=== PATIENT | male | born 2000 | race Caucasian/White ===

== ENCOUNTER 2019-07-19 18:01 | Emergency (ER) | payer OTHER, SELFPAY ==
[2019-07-19 18:22] VITALS: BMI 48.7
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
[2019-07-19 18:27] VITALS: BP 170/75; PULSE 62; RESP 16; TEMP 37; O2SAT 98
[2019-07-19 18:46] VITALS: BP 130/67; PULSE 68; RESP 14; O2SAT 98
--- NOTE | 2019-07-21 10:05 | DCPLANNER ---
manager urgent care had message to schedule a follow up appointment for patient with Dr. Elias. manager urgent care called the office of Dr. Elias, ENT, spoke with Kath, a follow up appointment was scheduled for , July 23, 2019 at 2:[address] Elias. manager urgent care called patient to inform patient of the scheduled appointment, unable to speak with patient at this time, a voicemail was left for patient to return director of casework phone call. manager urgent care will fax patients records to Dr. Patterson office.
--- NOTE | 2019-08-21 09:11 | DCPLANNER ---
Patient did attend appointment with Dr. Elias, but did not want any treatment at this time. Patient will return to see physician on an as needed basis.
== END 2019-07-19 18:46 | disposition home or self-care (01) ==
LOC: ER 19:29
PROVIDERS: Emergency Provider Emergency Medicine; PCP Family Medicine
DX: S09.92XA Unspecified injury of nose, initial encounter (principal); W22.8XXA Striking against or struck by other objects, initial encounter
CPT/HCPCS: 12345; 99281

== ENCOUNTER 2020-08-03 20:56 | Observation (INO) | payer OTHER, SELFPAY ==
[2020-08-03 21:36] VITALS: BP 159/74; PULSE 66; RESP 16; TEMP 36.7; O2SAT 98; BMI 55.5
--- NOTE | 2020-08-03 22:17 | ED_ITS ---
HPI - Abdominal Pain General: Chief Complaint: Abdominal Pain Stated Complaint: pain in Lower stomach, N/V Time Seen by Provider: 08/03/20 22:14 Source: patient Mode of arrival: ambulatory Limitations: no limitations History of Present Illness: HPI narrative: 20-year-old male states been having right lower quadrant abdominal pain over the last day. He states been episodic and was actually worse early and currently is a 3 out of 10. States pain is sharp denies any worsening improving factors. Has had no abdominal surgeries in the past. Denies any vomiting or diarrhea. Denies any fevers. Denies any known sick contacts. MD elicited complaint: abdominal pain Associated Symptoms: Denies chills, dysuria and fever(s) Review of Systems Const: Denies: fever(s), chills, body aches or change in appetite Eyes: Denies: blurry vision or eye discomfort ENMT: Denies: throat pain or dental pain Card: Denies: chest pain Resp: Denies: dyspnea GI: Reports: abdominal pain : Denies: dysuria Musc: Denies: neck pain or back pain Skin/Breast: Denies: rash Neuro: Denies: headache(s) Psych: Denies: depression Tyler/Lymph: Denies: easy bruising All/Imm: Denies: urticaria PFSH ED PFSH: Social History Smoking and tobacco status: never smoked Physical Exam Const: COMMON NORMALS: no acute distress, patient oriented x3 and healthy appearing HENMT: COMMON NORMALS: normocephalic and atraumatic HEAD & SCALP: normocephalic and atraumatic Eye: COMMON NORMALS: Equal, round and reactive pupils present and EOMs intact bilaterally PUPIL: Yes Equal, round and reactive pupils present Neck/C-Spine: COMMON NORMALS: full ROM and supple Chest: COMMONS NORMALS: normal inspection of the chest and normal palpation of entire chest wall Resp: COMMON NORMALS: normal respiratory effort, No retractions, No use of accessory muscles and clear to auscultation bilaterally AUSCULTATION: clear to auscultation bilaterally Cardio: COMMON NORMALS: regular rate, regular rhythm and No murmurs present (Cardio) RATE: regular rate RHYTHM: regular rhythm GI: COMMON NORMALS: Normal to inspection, nondistended, normoactive bowel sounds present, Soft to palpation and no masses PALPATION: Yes Soft to palpation and Yes Tenderness to palpation present (GI) Details: RLQ Extremity: COMMON NORMALS: normal to inspection and full ROM Neuro: COMMON NORMALS: patient oriented x3, moves all extremities and no focal motor deficits Psych: COMMON NORMALS: mental status grossly normal, Normal thought process present and cooperative THOUGHT PROCESS: Normal thought process present Skin: COMMON NORMALS: no rashes or lesions noted and no wounds GENERAL SKIN EXAM: no rashes or lesions noted Course Vital Signs: Vital signs: Vital Signs Temperature 98.0 F 08/03/20 21:36 Pulse Rate 86 08/03/20 22:53 Respiratory Rate 18 08/03/20 22:53 Blood Pressure 155/73 08/03/20 22:53 Pulse Oximetry 96 08/03/20 22:53 MDM - Abdominal Pain MDM Narrative: Medical decision making narrative: Patient presents with abdominal pain with CT showing appendicitis. Patient started on IV antibiotics and I spoke to surgeon who will admit. Patient's pain is improved here. Lab Data: Labs: Lab Results 08/03/20 08/03/20 Range/Units 22:46 22:46 WBC 10.0 (4.0-10.0) 10^3/ uL RBC 4.81 (4.1-5.3) 10^6/u L Hgb 13.9 (11.7-16.6) g/dL Hct 42.3 (42.0-52.0) % MCV 87.9 (80-94) fL MCH 28.9 (28.0-34.0) pg MCHC 32.9 (30.0-36.0) g/dL RDW 12.8 (12.1-15.1) % Plt Count 253 (130-400) 10^3/c mm MPV 9.4 (7.4-10.4) fL Neut % (Auto) 71.6 % Lymph % (Auto) 21.3 % [place] % (Auto) 5.7 % Eos % (Auto) 0.7 % Baso % (Auto) 0.4 % Neut # (Auto) 7.14 (1.8-7.7) 10^3/u L Lymph # (Auto) 2.1 (0.8-4.8) 10^3/u L [place] # (Auto) 0.6 (0.2-0.9) 10^3/u L Eos # (Auto) 0.1 (0.0-0.8) 10^3/u L Baso # (Auto) 0.0 (0.0-0.1) 10^3/u L Nucleated RBC % (a uto) 0 % Nucleated RBCs # 0.0 /100WBC Sodium 135 L (136-145) mmol/L Potassium 3.9 (3.5-5.1) mmol/L Chloride 101 (98-107) mmol/L Carbon Dioxide 23 (22-29) mmol/L Anion Gap 14.9 (5-19) BUN 12 (6-20) mg/dL Creatinine 0.7 (0.7-1.2) mg/dL GFR Calculation 142.4 H (90-130) mL/min Glucose 98 (65-115) mg/dL Calculated Osmolal ity 280 L (285-295) mOsm/k g Calcium 8.5 (8.5-10.5) mg/dL Total Bilirubin 0.3 (0.15-1.2) mg/dL AST 25 (0-40) U/L ALT 34 (0-41) U/L Alkaline Phosphata se 78 (40-130) IU/L Total Protein 6.5 L (6.6-8.7) g/dL Albumin 4.2 (3.5-5.2) g/dL Globulin 2.3 (1.3-4.6) g/dL Lipase 13 (13-60) U/L Imaging Data ^: CT Abd/Pel: Attestation: I personally reviewed and interpreted this imaging study as follows: Radiologist's impression: [address] [address] [address] Scan Report Signed with Addenda Patient: Kin Rubio Unit #: [id number] : 2000 Age/Sex: 20 / M ADM Date: 08/03/20 Loc: ER Room/Bed: Attending Dr: Ordering Provider/Ordering MD: Lorene Robles MD Date of Service: 08/03/20 Procedure(s): CT abdomen pelvis w con* [id number] Accession Number(s): [id number] Report Number: [id number]/CT abdomen pelvis w con* [id number] THIS REPORT CONTAINS FINDINGS THAT MAY BE CRITICAL TO PATIENT CARE. The findings were verbally communicated via telephone conference with LORENE ROBLES at 11:13 PM CDT on 08/03/2020. The findings were acknowledged and understood. Radiation Dose CTDIVOL = (mGy): DLP = 1973.44 (mGy-cm) Addendum Dictated By: Juan Jose Bearden MD Addendum Signed By: Juan Jose Bearden MD Signed Date/Time: 2313 Addendum Cosigned By: PROCEDURE INFORMATION: Exam: CT Abdomen And Pelvis With Contrast Exam date and time: 08/03/2020 10:17 PM Age: 20 years old Clinical indication: Abdominal pain; Localized; Lower; Additional info: Abd pain TECHNIQUE: Imaging protocol: Computed tomography of the abdomen and pelvis with contrast. Radiation optimization: All CT scans at this facility use at least one of these dose optimization techniques: automated exposure control; mA and/or kV adjustment per patient size (includes targeted exams where dose is matched to clinical indication); or iterative reconstruction. Contrast material: OMNI 300; Contrast volume: 95 ml; Contrast route: INTRAVENOUS (IV); COMPARISON: CR XR KUB [id number] 10/08/2015 4:31 AM RADIATION DOSE METRICS: Total DLP (mGy-cm): 1973.44 FINDINGS: Liver: Normal. No mass. Gallbladder and bile ducts: Normal. No calcified stones. No ductal dilation. Pancreas: Normal. No ductal dilation. Spleen: Normal. No splenomegaly. Adrenal glands: Normal. No mass. Kidneys and ureters: Left kidney cyst, negative for follow-up advised. Stomach and bowel: Unremarkable. No obstruction. No mucosal thickening. Appendix: Appendix dilated to 9.1 mm with some surrounding edema concerning for an acute appendicitis in the appropriate clinical setting. Intraperitoneal space: Unremarkable. No free air. No significant fluid collection. Vasculature: Unremarkable. No abdominal aortic aneurysm. Lymph nodes: Unremarkable. No enlarged lymph nodes. Urinary bladder: Unremarkable as visualized. Reproductive: Unremarkable as visualized. Bones/joints: Unremarkable. No acute fracture. Soft tissues: Unremarkable. CT/CT abdomen pelvis w con* [id number] IMPRESSION: 1. Appendix dilated to 9.1 mm with some surrounding edema concerning for an acute appendicitis in the appropriate clinical setting. 2. Left kidney cyst, negative for follow-up advised. COMMENTS: Consistent with the [employer]'s Incidental Findings Committee white paper (J Am Leonard Radiol 2018): Any incidental renal lesion less than 1 cm or classified as too small to characterize, or any incidental cystic renal lesion characterized as simple-appearing, is likely benign. No follow-up imaging is recommended for these lesions per consensus recommendations based on imaging criteria. Radiation Dose CTDIVOL = (mGy): DLP = 1973.44 (mGy-cm) Discharge Plan Discharge Prescriptions: No Action No Known Home Medications RF: 0 Coding Level of Care Code ED Curing Press Operator for g Fwd Exam Comprehensive
[2020-08-03] MEDS: iohexol 300 mg/mL 100 mL Btl IV (22:30)
[2020-08-03 22:43] VITALS: RESP 18; O2SAT 97
[2020-08-03] MEDS: morphine 4 mg/mL SDV 1 mL IVP (22:43)
[2020-08-03] MEDS: ondansetron 2 mg/ML SDV 2 mL 4 MG IVP (22:43)
[2020-08-03 22:53] VITALS: BP 155/73; PULSE 86; RESP 18; O2SAT 96
[2020-08-03 22:53] LABS: Basophils % 0.4 %; Eosinophils # 0.1 10^3/uL (0.0-0.8); Eosinophils % 0.7 %; Hematocrit 42.3 % (42.0-52.0); Hemoglobin 13.9 g/dL (11.7-16.6); Lymphocytes # 2.1 10^3/uL (0.8-4.8); Lymphocytes % 21.3 %; Mean Corpuscular HGB Conc 32.9 g/dL (30.0-36.0); Mean Corpuscular Hemoglobin 28.9 pg (28.0-34.0); Mean Corpuscular Volume 87.9 fL (80-94); Mean Platelet Volume 9.4 fL (7.4-10.4); Monocytes # 0.6 10^3/uL (0.2-0.9); Monocytes % 5.7 %; Neutrophils # 7.14 10^3/uL (1.8-7.7); Neutrophils % 71.6 %; Nucleated Red Blood Cells % 0 %; Platelet Count 253 10^3/cmm (130-400); Red Blood Count 4.81 10^6/uL (4.1-5.3); Red Cell Distribution Width 12.8 % (12.1-15.1)
[2020-08-03 23:11] LABS: Alanine Aminotransferase 34 U/L (0-41); Albumin Level 4.2 g/dL (3.5-5.2); Alkaline Phosphatase 78 IU/L (40-130); Aspartate Amino Transferase 25 U/L (0-40); Blood Urea Nitrogen 12 mg/dL (6-20); Calcium 8.5 mg/dL (8.5-10.5); Carbon Dioxide 23 mmol/L (22-29); Chloride 101 mmol/L (98-107); Globulin 2.3 g/dL (1.3-4.6); Glomerular Filtration Rate 142.4 mL/min (90-130); Glucose 98 mg/dL (65-115); Lipase 13 U/L (13-60); Osmolality Calculated 280 mOsm/kg (285-295); Sodium 135 mmol/L (136-145); Total Bilirubin 0.3 mg/dL (0.15-1.2); Total Protein 6.5 g/dL (6.6-8.7)
[2020-08-03 23:14] LABS: Anion Gap 14.9 (5-19); Potassium 3.9 mmol/L (3.5-5.1)
[2020-08-03 23:30] VITALS: BP 153/71; PULSE 62; RESP 18; O2SAT 98
[2020-08-03] MEDS: piperacillin-tazobactam 3.375 GM in sodium chloride 0.9% (plus) 50 ML IV (23:32)
[2020-08-04] VITALS (20 sets, daily range): BP systolic 123–166; BP diastolic 69–85; PULSE 54–106; RESP 16–30; TEMP 36.4–37.1; O2SAT 90–100
[2020-08-04] MEDS: sodium chloride 0.9% 1,000 ML 100 ML IV (01:34)
--- NOTE | 2020-08-04 07:30 | PC.NURSE ---
Patient is gone to surgery before this nurse was able to see him. Report received at this time from Anali Donohue LPN.
--- NOTE | 2020-08-04 07:32 | ANES.PREANE2 ---
Pre-Anesthetic Assessment Pre-Anesthetic Assessment: Height/Weight: Height 1.83 m Weight 185.973 kg Temp Pulse Resp BP Pulse Ox 97.5 F L 54 L 18 166/75 98 08/04/20 03:15 08/04/20 07:28 08/04/20 07:28 08/04/20 07:28 08/04/20 07:28 Preop Diagnosis: acute appendicitis Proposed Procedure: Operation Date: 08/04/20 08:15 Proposed Procedures p Laparoscopic Appendectomy(Not Applicable) - Damien Foley MD Was Beta Yen taken within 24 hours: N/A Was Clonidine taken within 24 hours: N/A Last intake: Intake Last Liquid Date 08/03/20 Last Liquid Time 21:00 Last Solid Date 08/03/20 Last Solid Time 18:00 Social: Social History: No alcohol and No tobacco Exam: Pre-Anes Outpt Exam: alert, oriented x 3, clear to auscultation bilaterally and regular rate & rhythm Airway: Submandibular: WNL Cervical ROM: WNL MP: 2 Dentition: Full History/ROS: No significant history except as noted Metabolic: Metabolic: Morbid obesity Anesthetic Plan: ASA status: 2 Anesthesia: General Risk of > 500 ml blood loss (7ml/kg in children): No Meds/Allergies Current Medications: Current Medications Generic Name Dose Route Start Last Admin Trade Name Freq PRN Reason Stop Dose Admin Sodium Chloride 1,000 mls @ 100 m ls/hr 08/04/20 00:55 08/04/20 01:34 Sodium Chloride 0.9% IV 100 mls/hr .Q10H SENA Administration PFSH Anesthesia PFSH: Social History Smoking and tobacco status: never smoked Data Anesthesia CBC & Chem 7: 08/03/20 22:46 08/03/20 22:46 Other Labs: Laboratory Results - last 48 hr 08/03/20 08/03/20 22:46 22:46 WBC 10.0 RBC 4.81 Hgb 13.9 Hct 42.3 MCV 87.9 MCH 28.9 MCHC 32.9 RDW 12.8 Plt Count 253 MPV 9.4 Neut % (Auto) 71.6 Lymph % (Auto) 21.3 [place] % (Auto) 5.7 Eos % (Auto) 0.7 Baso % (Auto) 0.4 Neut # (Auto) 7.14 Lymph # (Auto) 2.1 [place] # (Auto) 0.6 Eos # (Auto) 0.1 Baso # (Auto) 0.0 Nucleated RBC % (auto) 0 Nucleated RBCs # 0.0 Sodium 135 L Potassium 3.9 Chloride 101 Carbon Dioxide 23 Anion Gap 14.9 BUN 12 Creatinine 0.7 GFR Calculation 142.4 H Glucose 98 Calculated Osmolality 280 L Calcium 8.5 Total Bilirubin 0.3 AST 25 ALT 34 Alkaline Phosphatase 78 Total Protein 6.5 L Albumin 4.2 Globulin 2.3 Lipase 13 Cardiac Studies: No Data to Display
--- NOTE | 2020-08-04 07:40 | P.HP_ITS ---
Providers/Chief Complaint Admitting Physician: Damien Foley MD Primary Care Provider: Raul Chapman DO Chief Complaint: pain in Lower stomach, N/V History of Present Illness Kin Rubio is a 20 year old male who presented to the ER last night with 2-day history of generalized abdominal pain. Patient that he was constipated but he had been having bowel movements. Yesterday evening the pain progressively got worse and localized to the lower abdomen. Patient had nausea but no vomiting. Fevers but denies any chills. No urinary symptoms. No similar episodes in the past. Review of Systems General: Reports: 10 or more systems reviewed and unremarkable except in HPI and below Medications/Allergies Home Medications Medication Instructions Recorded Confirmed Last Taken Type No Known Home Medications 07/19/19 07/19/19 Unknown History Allergies Allergy/AdvReac Type Severity Reaction Status Date / Time No Known Allergies Allergy Verified 07/19/19 18:26 PFSH Acute PFSH: Surgical History (Updated 08/04/20 @ 07:39 by Damien Foley MD) S/P foot surgery, left Social History Smoking and tobacco status: never smoked Vitals/I&O/Wt Last Vital Signs Temp 97.5 F L 08/04/20 03:15 Pulse 54 L 08/04/20 07:28 Resp 18 08/04/20 07:28 BP 166/75 08/04/20 07:28 Pulse Ox 98 08/04/20 07:28 08/03/20 08/04/20 08/04/20 22:59 06:59 14:59 Intake Total 50 / 50 Balance 50 / 50 Weight last 48 hrs Weight 410 lb Physical Exam Narrative: EXAM NARRATIVE: HEENT: Normocephalic Eye: Sclera /conjunctiva normal Respiratory and chest: Bilateral clear breath sounds on auscultation Cardiovascular: Normal S1 and S2 heart sounds Abdomen: Soft to palpation, tender right lower quadrant, no guarding or rigidity Neurological: Oriented to place person and time Skin: Intact, no lesions appreciated on gross exam Data : 08/03/20 22:46 08/03/20 22:46 A&P Assessment and plan (1) Acute appendicitis: 20-year-old male with right lower quadrant pain,, nausea, tender to palpation the right lower quadrant. WBC [address] scan showed findings consistent with early acute appendicitis Patient is admitted overnight for IV antibiotics Plan for laparoscopic possible open appendectomy today Procedure, risks, benefits and alternatives have been discussed with the patient who wishes to proceed with surgery. Status: Acute Attestations Medical Necessity Statement*: Acute appendicitis Coding Level of Care Code Acute Cashier Self Service [employer] for [facility] Sia Diagnoses Acute appendicitis K35.80
[2020-08-04] MEDS: HYDROmorphone 1 mg/mL INJ 1 mL 0.5 MG IVP ×2 (09:38→09:48)
--- NOTE | 2020-08-04 09:58 | PM.OP ---
Operative Report Date of procedure: August 04, 2020 Pre-op Diagnosis: acute appendicitis Post-op diagnosis: same Procedure Done: Laparoscopic appendectomy Specimens removed/disposition: Appendix Surgeon: Damien Foley Anesthesia: General Condition: stable Disposition: PACU Procedure: The patient was taken to the Operating Room and intubated under general anesthesia after antibiotic had been administered. Using a 15 blade, a 1-cm infraumbilical incision was made and using open Olivia technique, the peritoneal cavity was entered. A 12mm port with balloon was placed and 14 mm of pneumoperitoneum was created and 10-mm 30 degree scope was introduced. Two separate 5mm ports were placed in the left and right lower quadrant under direct visualization. The appendix was noted in the right lower quadrant and appeared acutely inflamed.. Using [place] forceps, an opening was made in the mesoappendix near the base of the appendix. An Endo KAROLINA stapler 45mm long 3.5mm blue load was introduced to divide the appendix at it's base. Using electrocautery, the mesoappendix including the appendicular artery was divided. There was no bleeding noted and the staple line appeared intact. An EndoCatch bag was introduced to remove the appendix. All three ports were removed under direct visualization and there was no bleeding noted on the port sites. 10 0.5% Marc[place] was infiltrated at the port sites. The fascia at the umbilical port was closed using figure of eight 0-Vicryl sutures and subcutaneous tissue was approximated using 3-0 Vicryl and skin at all 3 port sites was closed using 4-0 Monocryl and Dermabond. The patient was extubated and transferred to recovery room in stable condition.
--- NOTE | 2020-08-04 10:46 | PC.CHAP ---
Pastoral Care Encounter/Spiritual Assessment Type of Contact [] Declined health safety instructor visit [] Patient/Family/Request visit [] Outpatient visit [] Follow-up visit [] Physician referral [] Code/Alert [] Routine visit [] Staff referral [] Actively dying [] Patient sleeping [x] Family support [] [] Out of room [] Palliative care [] [] Receiving care in room [] Pre-surgical visit [] Trauma [] Long length of stay [] ICU visit [] Other: had surgery Relational/Emotional Strength [x] Patient feels connected with others/family/visitors/staff [] Distress [] Loneliness/isolation [] Abandonment Spirituality of Patient [] Person of Lupe [] Attends Yazidi of their Lupe [] Believes in Prayer [] Reads Bible or Jehovah'S Witness materials [] There are Spiritual issues to be addressed Line Producer Interventions [] Prayer [] Active listening [] Non-anxious presence [] Spiritual/emotional support [] Crisis/trauma care [] Spiritual counseling [] Bereavement support [] Provided bereavement packet [] Provided Bible/devotional materials [] Provided toy/stuffed animal, coloring book to patient or family member [] Provided Communion [] Anointing/[place] [] Salvation [] Completed spiritual assessment [] Other: Impact on Illness or Injury [] Angry [] Fearful [] Anxious [] Often cries [] Exhaustion [] Unable to work [] Unable to attend pentecostalism [] Unable to walk/stand [] Unable to read [] Unable to drive [] Unable to eat/drink [] Unable to sleep [] Unable to be with family [] Patient intubated [] Other: Summary had surgery, going home apendex, doing fine +1 feoncee Time spent with patient 10 mins
[2020-08-04] MEDS: HYDROcodone-acetaminophen 5-325 mg Tablet 1 TAB PO ×2 (11:20→15:20)
--- NOTE | 2020-08-04 12:54 | PC.NURSE ---
Patient ate 90% of his clear liquid tray and ambulated 175 feet at this time. Patient denies any nausea or dizziness. Patient rates pain a 5/10 and no change with ambulation.
--- NOTE | 2020-08-04 13:57 | PC.NURSE ---
Patient ambulating in the hallway with hids significant other.
--- NOTE | 2020-08-04 14:40 | PM.DCS ---
Discharge Providers Date of Admission: 08/04/20 00:12 Date of Discharge: August 04, 2020 Attending Provider at Admission: Damien Foley MD Attending Provider at Discharge: Damien Foley MD Primary Care Provider: Raul Chapman DO Diagnoses at Discharge Discharge Diagnosis (1) Acute appendicitis: Status: Resolved Reason for Visit Reason for Visit: pain in Lower stomach, N/V Hospital Course Hospital Course Kin Rubio is a 20 year old male who presented to the ER last night with 2-day history of generalized abdominal pain. Patient that he was constipated but he had been having bowel movements. Yesterday evening the pain progressively got worse and localized to the lower abdomen. Patient had nausea but no vomiting. Fevers but denies any chills. No urinary symptoms. No similar episodes in the past. He was admitted to the hospital and underwent laparoscopic appendectomy. At time of discharge his vital signs were stable he was tolerating a liquid diet and his incisions were clean dry and intact. His pain is controlled with oral pain medication. Discharge Data Data Completed and Pending: Completed Studies During Hospitalization Category Date Time Status CT abdomen pelvis w con* [id number] Urge nt Cat Scan 08/03/20 22:16 Completed Pending at discharge Category Date Time Status ES surgery / GI i mages Routine Exams 08/04/20 08:31 Taken Pathology: Surgic al [PTH] Routine Pth 08/04/20 09:18 Received Labs from last 24 hours 08/03/20 08/03/20 22:46 22:46 WBC 10.0 RBC 4.81 Hgb 13.9 Hct 42.3 MCV 87.9 MCH 28.9 MCHC 32.9 RDW 12.8 Plt Count 253 MPV 9.4 Neut % (Auto) 71.6 Lymph % (Auto) 21.3 Mcdowell % (Auto) 5.7 Eos % (Auto) 0.7 Baso % (Auto) 0.4 Neut # (Auto) 7.14 Lymph # (Auto) 2.1 Mcdowell # (Auto) 0.6 Eos # (Auto) 0.1 Baso # (Auto) 0.0 Nucleated RBC % (a uto) 0 Nucleated RBCs # 0.0 Sodium 135 L Potassium 3.9 Chloride 101 Carbon Dioxide 23 Anion Gap 14.9 BUN 12 Creatinine 0.7 GFR Calculation 142.4 H Glucose 98 Calculated Osmolal ity 280 L Calcium 8.5 Total Bilirubin 0.3 AST 25 ALT 34 Alkaline Phosphata se 78 Total Protein 6.5 L Albumin 4.2 Globulin 2.3 Lipase 13 Vitals: Last Vital Signs Temp 97.9 F 08/04/20 10:38 Pulse 64 08/04/20 10:38 Resp 18 08/04/20 10:38 BP 157/73 08/04/20 10:38 Pulse Ox 95 08/04/20 10:38 Discharge Plan Discharge Patient Disposition: Home Condition: Stable Prescriptions: New Zofran 4 mg tablet 4 mg PO Q6H PRN (Reason: nausea and vomiting) Qty: 20 RF: 0 Colace 100 mg capsule 100 mg PO BID Qty: 30 RF: 0 hydrocodone-acetaminophen 5-325 mg tablet 1 tab PO Q6H PRN (Reason: pain) Qty: 20 RF: 0 Discharge Orders: Discharge Order (Routine); Ordered 08/04/20 Ordered By: Damien Foley Referrals: Damien Foley MD [Physician] - 08/19/20 9:35 am Patient Instructions: Hydrocodone/Acetaminophen (By mouth), Laxative, Stool Softeners (By mouth), Ondansetron (By mouth), Laparoscopic Appendectomy (DC), Opioid Safety Activity Restrictions/Additional Instructions: Diet Advance to normal diet as tolerated, increase fluid intake as much as possible. Activity Avoid strenuous activity for 2 weeks but continue with daily activities including walking as tolerated. Do not lift more than 10 pounds for 2 weeks Return to work/school You can return to work/ school whenever you feel ready as long as you don?t have to lift more than 10 pounds at work. If you have paperwork that needs to be completed for time off from work, please contact my office Driving You can resume driving once you stop using narcotic pain medications, and transition to non-opioid pain medications like Tylenol, Motrin, Aleve, etc. Medications Pain Take opioid pain medications as prescribed and transition to non-opioid pain medications like Tylenol, Motrin, Aleve etc. over the next few days. The goal of the pain medications is to make the pain bearable and not to be pain free since you recently had surgery. Resume all home medications after surgery as per the medication reconciliation list Nausea Nausea is common after surgery, take nausea medications as needed and stay on a liquid bland diet until nausea resolves. Constipation The combination of surgery, anesthesia and pain medications can result in constipation. Take stool softeners as prescribed. If you do not have a bowel movement in 3 days, please take an [id number] laxative like MiraLAX to address the constipation. Shower It is ok to shower but avoid getting the wound wet for 48 hours after surgery. Do not soak in bathtub, swimming pool or hot tub for 2 weeks. Wound care If glue has been used on your incisions after surgery, the glue on the incision will peel slowly over the next two weeks. The stitches used are dissolvable and will not need to be removed. Do not apply antibiotics or other medications on the incision Problems with the wound: you can develop some redness around the incision from bruising after surgery. If there is increasing pain, redness, tenderness around the incision with or without drainage, please contact my office to rule out an infection. Sometimes the skin at the incisions can separate, resulting in reopening of the wound. Cover the wound with antibiotic cream and sterile dressings and contact my office. Contact physician Call the office at [phone] during office hours or go the Emergency Room ?Fever to 100.4 or greater ?Shaking chills ?Pain that increases over time ?Redness, warmth, or pus draining from incision sites ?Persistent nausea or inability to take in liquids Discharge Attestations Time Spent in Discharge Care*: less than 30 min Quality Metrics Clinical Quality Measures During this hospital stay, did patient experience: None Coding Level of Care Code Acute [facility] note Diagnoses Acute appendicitis K35.80
--- NOTE | 2020-08-04 15:01 | ANE.PACU2 ---
Inpatient post-anesthesia follow up: Airway intact: Yes Vital signs: Temperature 98.5 F Pulse Rate [Monito r] 66 Pulse Rate 79 Respiratory Rate 18 Blood Pressure [Le ft Arm] 159/74 Blood Pressure 123/69 Pulse Oximetry 96 Oxygen Delivery Me thod Room Air Oxygen Flow Rate 8 Fraction of Inspir ed Oxygen Hydration adequate: Yes Nausea and vomiting: No Pain level: 2 Mental status: Baseline
--- NOTE | 2020-08-04 15:17 | PC.NURSE ---
Patient up ambulating in the hallway at this time.
--- NOTE | 2020-08-04 16:27 | PC.NURSE ---
IV removed intact at this time. Reviewed discharge with patient at this time. Patient verbalized understanding of discharge instructions. Patient verbalized understanding of follow up appointments as well. Patient ambulated to the ER to his private car.
== END 2020-08-04 16:30 | disposition home or self-care (01) ==
LOC: ER 23:59 → MEDSURG 08-04 00:13
PROVIDERS: Admitting Provider Surgery; Emergency Provider Emergency Medicine; PCP Family Medicine; Visit Provider Surgery
PROC: 0DTJ4ZZ Resection of Appendix, Percutaneous Endoscopic Approach (ICD-10-PCS; CPT 44970; principal; 2020-08-04 08:15)
DX: K35.80 Unspecified acute appendicitis (principal); E66.01 Morbid (severe) obesity due to excess calories
CPT/HCPCS: 44970; 74177; 80053; 83690; 85025; 88304; 96365; 96367; 96375; 99285; G0378; J1100; J1170; J2270; J2405; J2543; J2704; J2710; J3010; J3490; J7030; Q9967

== ENCOUNTER 2021-09-06 18:14 | Emergency (ER) | payer OTHER, SELFPAY ==
[2021-09-06 18:24] VITALS: BP 149/91; PULSE 99; RESP 18; TEMP 37.7; O2SAT 98; BMI 54.2
[2021-09-06] MEDS: ondansetron 2 mg/ML SDV 2 mL 4 MG IVP (20:09)
[2021-09-06] MEDS: acetaminophen 325 mg Tablet 650 MG PO (20:09)
[2021-09-06] MEDS: sodium chloride 0.9% 1,000 ML 999 ML IV (20:09)
--- NOTE | 2021-09-06 20:09 | W.ED.NAVMDI ---
HPI - Nausea/Vomiting/Diarrhea General: Chief complaint: Nausea/Vomiting/Diarrhea Stated complaint: back pain/diarrhea/indegestion Time Seen by Provider: 09/06/21 19:48 Source: patient Mode of arrival: ambulatory Limitations: no limitations History of Present Illness: 21-year-old male states that over the last 2 days he been having some generalized body aches along with some low-grade fevers he is also had some nausea and abdominal cramping states pain is currently a 3 out of 10 denies any worsening proving factors patient denies any headaches denies any chest pain or cough. Associated nausea: Yes Associated symtoms: Reports nausea; Denies chest pain, dysuria or headache(s) Review of Systems Const: Reports: fever(s); Denies: chills, body aches or change in appetite Eyes: Denies: blurry vision or eye discomfort ENMT: Denies: throat pain or dental pain Card: Denies: chest pain Resp: Denies: dyspnea GI: Reports: abdominal pain, nausea and vomiting; Denies: diarrhea : Denies: dysuria Musc: Denies: neck pain or back pain Skin/Breast: Denies: rash Neuro: Denies: headache(s) Psych: Denies: depression Tyler/Lymph: Denies: easy bruising All/Imm: Denies: urticaria PFSH ED PFSH: Surgical History S/P foot surgery, left S/P laparoscopic appendectomy (08/04/20) Social History Smoking and tobacco status: never smoked Physical Exam Const: COMMON NORMALS: no acute distress, patient oriented x3 and healthy appearing HENMT: COMMON NORMALS: normocephalic and atraumatic HEAD & SCALP: normocephalic and atraumatic Eye: COMMON NORMALS: Equal, round and reactive pupils present and EOMs intact bilaterally PUPIL: Yes Equal, round and reactive pupils present Neck/C-Spine: COMMON NORMALS: full ROM and supple Chest: COMMONS NORMALS: normal inspection of the chest and normal palpation of entire chest wall Resp: COMMON NORMALS: normal respiratory effort, No retractions, No use of accessory muscles and clear to auscultation bilaterally AUSCULTATION: clear to auscultation bilaterally Cardio: COMMON NORMALS: regular rate, regular rhythm and No murmurs present (Cardio) RATE: regular rate RHYTHM: regular rhythm GI: COMMON NORMALS: Normal to inspection, nondistended, normoactive bowel sounds present, Soft to palpation, non-tender and no masses PALPATION: Yes Soft to palpation Extremity: COMMON NORMALS: normal to inspection and full ROM Neuro: COMMON NORMALS: patient oriented x3, moves all extremities and no focal motor deficits Psych: COMMON NORMALS: mental status grossly normal, Normal thought process present and cooperative THOUGHT PROCESS: Normal thought process present Skin: COMMON NORMALS: no rashes or lesions noted and no wounds GENERAL SKIN EXAM: no rashes or lesions noted Course Vital Signs: Vital signs: Vital Signs Temperature 99.9 F H 09/06/21 18:24 Pulse Rate 99 09/06/21 18:24 Respiratory Rate 18 09/06/21 18:24 Blood Pressure 149/91 09/06/21 18:24 Pulse Oximetry 98 09/06/21 18:24 MDM - Nausea/Vomiting/Diarrhea Medical Decision Making Patient presents with some abdominal pain nausea fevers his exam here is benign white count is normal he has no signs of acute surgical abdomen not believe he requires a CT of his abdomen and likely has a viral syndrome his COVID was negative as well. He is stable for discharge we will prescribe him Zofran he is to take Motrin Tylenol for his fever is follow-up with PCP and return if worsening he understands agrees to plan. Lab Data : 09/06/21 20:01 09/06/21 20:01 Laboratory Results WBC 9.7 10^3/uL (4.0-10.0) 09/06/21 20:01 RBC 5.55 10^6/uL (4.1-5.3) H 09/06/21 20:01 Hgb 15.9 g/dL (11.7-16.6) 09/06/21 20:01 Hct 47.9 % (42.0-52.0) 09/06/21 20:01 MCV 86.3 fl (80-94) 09/06/21 20:01 MCH 28.6 pg (28.0-34.0) 09/06/21 20:01 MCHC 33.2 g/dL (30.0-36.0) 09/06/21 20:01 RDW 13.2 % (12.1-15.1) 09/06/21 20:01 Plt Count 304 10^3/cmm (130-400) 09/06/21 20:01 MPV 9.2 fL (7.4-10.4) 09/06/21 20:01 Neut % (Auto) 86.7 % 09/06/21 20:01 Lymph % (Auto) 8.3 % 09/06/21 20:01 Powell % (Auto) 2.8 % 09/06/21 20:01 Eos % (Auto) 1.4 % 09/06/21 20:01 Baso % (Auto) 0.4 % 09/06/21 20:01 Neut # (Auto) 8.42 10^3/uL (1.8-7.7) H 09/06/21 20:01 Lymph # (Auto) 0.8 10^3/uL (0.8-4.8) 09/06/21 20:01 Powell # (Auto) 0.3 10^3/uL (0.2-0.9) 09/06/21 20:01 Eos # (Auto) 0.1 10^3/uL (0.0-0.8) 09/06/21 20:01 Baso # (Auto) 0.0 10^3/uL (0.0-0.1) 09/06/21 20:01 Nucleated RBC % (auto) 0 % 09/06/21 20: Nucleated RBCs # 0.0 /100WBC 09/06/21 20:01 Sodium 137 mmol/L (136-145) 09/06/21 20:01 Potassium 4.1 mmol/L (3.5-5.1) 09/06/21 20:01 Chloride 99 mmol/L (98-107) 09/06/21 20:01 Carbon Dioxide 25 mmol/L (22-29) 09/06/21 20:01 Anion Gap 17.1 (5-19) 09/06/21 20:01 BUN 13 mg/dL (6-20) 09/06/21 20:01 Creatinine 0.8 mg/dL (0.7-1.2) 09/06/21 20:01 GFR Calculation 120.9 mL/min (90-130) 09/06/21 20:01 Glucose 84 mg/dL (65-115) 09/06/21 20:01 Calculated Osmolality 283 mOsm/kg (285-295) L 09/06/21 20:01 Calcium 9.4 mg/dL (8.5-10.5) 09/06/21 20:01 Total Bilirubin 0.5 mg/dL (0.15-1.2) 09/06/21 20:01 AST 30 U/L (0-40) 09/06/21 20:01 ALT 44 U/L (0-41) H 09/06/21 20:01 Alkaline Phosphatase 79 IU/L (40-130) 09/06/21 20:01 Creatine Kinase 263 U/L (39-308) 09/06/21 20:01 Total Protein 7.5 g/dL (6.6-8.7) 09/06/21 20:01 Albumin 4.9 g/dL (3.5-5.2) 09/06/21 20:01 Globulin 2.6 g/dL (1.3-4.6) 09/06/21 20:01 Lipase 13 U/L (13-60) 09/06/21 20:01 SARS-CoV-2 Ag (Rapid) Negative (Negative) 09/06/21 20:01 Discharge Plan Discharge Patient Disposition: Home Clinical Impression: Vomiting Abdominal pain Qualifiers: Abdominal location: generalized Qualified Code(s): R10.84 - Generalized abdominal pain Condition: Stable Prescriptions: New ondansetron 4 mg tablet,disintegrating 4 mg PO Q6H PRN (Reason: nausea and vomiting) Qty: 14 0RF No Action Zofran 4 mg tablet 4 mg PO Q6H PRN (Reason: nausea and vomiting) Qty: 20 0RF Colace 100 mg capsule 100 mg PO BID Qty: 30 0RF hydrocodone-acetaminophen 5-325 mg tablet 1 tab PO Q6H PRN (Reason: pain) Qty: 20 0RF Discharge Orders: Discharge ED (Routine); Ordered 09/06/21 Ordered By: Millicent Simms Referrals: Raul Chapman DO [Primary Care Provider] - 1-3 days Discharge Diet: Advance as tolerated Discharge Activity: Resume usual activity Patient Instructions: Abdominal Pain (ED) Coding Level of Care Code ED Process Cheese Cooker for Chg Fwd Exam Comprehensive
[2021-09-06 20:25] LABS: Basophils % 0.4 %; Eosinophils # 0.1 10^3/uL (0.0-0.8); Eosinophils % 1.4 %; Hematocrit 47.9 % (42.0-52.0); Hemoglobin 15.9 g/dL (11.7-16.6); Lymphocytes # 0.8 10^3/uL (0.8-4.8); Lymphocytes % 8.3 %; Mean Corpuscular HGB Conc 33.2 g/dL (30.0-36.0); Mean Corpuscular Hemoglobin 28.6 pg (28.0-34.0); Mean Corpuscular Volume 86.3 fl (80-94); Mean Platelet Volume 9.2 fL (7.4-10.4); Monocytes # 0.3 10^3/uL (0.2-0.9); Monocytes % 2.8 %; Neutrophils # 8.42 10^3/uL (1.8-7.7); Neutrophils % 86.7 %; Nucleated Red Blood Cells % 0 %; Platelet Count 304 10^3/cmm (130-400); Red Blood Count 5.55 10^6/uL (4.1-5.3); Red Cell Distribution Width 13.2 % (12.1-15.1); White Blood Count 9.7 10^3/uL (4.0-10.0)
[2021-09-06 20:37] LABS: SARS Covid-2 Antigen Negative (Negative)
[2021-09-06 20:51] LABS: Alanine Aminotransferase 44 U/L (0-41); Albumin Level 4.9 g/dL (3.5-5.2); Alkaline Phosphatase 79 IU/L (40-130); Anion Gap 17.1 (5-19); Aspartate Amino Transferase 30 U/L (0-40); Blood Urea Nitrogen 13 mg/dL (6-20); Calcium 9.4 mg/dL (8.5-10.5); Carbon Dioxide 25 mmol/L (22-29); Chloride 99 mmol/L (98-107); Globulin 2.6 g/dL (1.3-4.6); Glomerular Filtration Rate 120.9 mL/min (90-130); Glucose 84 mg/dL (65-115); Lipase 13 U/L (13-60); Osmolality Calculated 283 mOsm/kg (285-295); Potassium 4.1 mmol/L (3.5-5.1); Sodium 137 mmol/L (136-145); Total Bilirubin 0.5 mg/dL (0.15-1.2); Total Protein 7.5 g/dL (6.6-8.7)
[2021-09-06 20:54] LABS: Creatine Phosphokinase 263 U/L (39-308)
[2021-09-06 21:07] VITALS: BP 144/98; PULSE 92; RESP 16; O2SAT 98
== END 2021-09-06 21:08 | disposition home or self-care (01) ==
PROVIDERS: Emergency Provider Emergency Medicine; PCP Family Medicine
DX: R10.84 Generalized abdominal pain (principal); R11.10 Vomiting, unspecified
CPT/HCPCS: 80053; 82550; 83690; 85025; 87426; 96361; 96374; 99284; J2405; J7030

== ENCOUNTER 2022-09-25 03:12 | Emergency (ER) | payer OTHER, SELFPAY ==
[2022-09-25 03:17] VITALS: BP 153/91; PULSE 74; RESP 19; TEMP 36.4; O2SAT 97; BMI 55.7
[2022-09-25 03:26] VITALS: BP 153/91; PULSE 71; RESP 21; O2SAT 95
--- NOTE | 2022-09-25 03:27 | XRR_ITS ---
PROCEDURE INFORMATION: Exam: XR Chest Exam date and time: 09/25/2022 3:32 AM Age: 22 years old Clinical indication: Pain; Chest pressure; Additional info: Cp TECHNIQUE: Imaging protocol: Radiologic exam of the chest. Views: 1 view. COMPARISON: CR XR chest 1V [id number] 10/13/2018 9:57 AM FINDINGS: Lungs: Unremarkable. No consolidation. Pleural spaces: Unremarkable. No pleural effusion. No pneumothorax. Heart/Mediastinum: Unremarkable. No cardiomegaly. Bones/joints: Unremarkable. XR/XR chest 1V portable [id number] IMPRESSION: No acute findings.
--- NOTE | 2022-09-25 03:27 | ECG_ITS ---
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 Measurements Intervals [place] Rate: 66 P: 50 NM: 151 QRS: 52 QRSD: 115 T: 49 QT: 360 QTc: 379 Interpretive Statements SINUS RHYTHM WITH SINUS ARRHYTHMIA MODERATE INTRAVENTRICULAR CONDUCTION DELAY [110+ ms QRS DURATION] Compared to ECG 10/13/2018 09:50:26 Intraventricular conduction delay now present Electronically Signed On 09-25-2022 17:35:08 CDT by Wero Iglesias M.D. [id number]
[2022-09-25 03:35] LABS: Basophils # 0.1 10^3/uL (0.0-0.1); Basophils % 0.9 %; Eosinophils # 0.1 10^3/uL (0.0-0.8); Eosinophils % 1.7 %; Hematocrit 44.1 % (42.0-52.0); Hemoglobin 14.5 g/dL (11.7-16.6); Lymphocytes # 3.3 10^3/uL (0.8-4.8); Lymphocytes % 47.5 %; Mean Corpuscular HGB Conc 32.9 g/dL (30.0-36.0); Mean Corpuscular Hemoglobin 28.2 pg (28.0-34.0); Mean Corpuscular Volume 85.6 fl (80-94); Mean Platelet Volume 8.9 fL (7.4-10.4); Monocytes # 0.5 10^3/uL (0.2-0.9); Monocytes % 7.7 %; Neutrophils # 2.91 10^3/uL (1.8-7.7); Neutrophils % 42.1 %; Nucleated Red Blood Cells % 0 %; Platelet Count 273 10^3/cmm (130-400); Red Blood Count 5.15 10^6/uL (4.1-5.3); White Blood Count 6.9 10^3/uL (4.0-10.0)
[2022-09-25 03:52] LABS: Alanine Aminotransferase 42 U/L (0-41); Albumin Level 4.1 g/dL (3.5-5.2); Alkaline Phosphatase 81 U/L (40-130); Anion Gap 15.1 (5-19); Aspartate Amino Transferase 38 U/L (0-40); Blood Urea Nitrogen 13 mg/dL (6-20); Calcium 8.9 mg/dL (8.5-10.5); Carbon Dioxide 25 mmol/L (22-29); Chloride 104 mmol/L (98-107); Globulin 2.4 g/dL (1.3-4.6); Glucose 84 mg/dL (65-115); Lipase 17 U/L (13-60); Osmolality Calculated 289 mOsm/kg (285-295); Potassium 4.1 mmol/L (3.5-5.1); Sodium 140 mmol/L (136-145); Total Bilirubin 0.4 mg/dL (0.15-1.2); Total Protein 6.5 g/dL (6.6-8.7)
[2022-09-25 03:53] LABS: Troponin(5th) Baseline 6 ng/L (0-15)
--- NOTE | 2022-09-25 03:59 | W.ED.CHESTPA ---
HPI - Chest Pain General: Chief Complaint: Chest Pain Stated Complaint: Chest Pains Time Seen by Provider: 09/25/22 03:14 Source: patient Mode of arrival: ambulatory Limitations: no limitations History of Present Illness: 22-year-old male states he woke up with a sharp chest pain. States pain was in center of his chest is worse with palpation he states its eased up and is currently only 1 out of 10 he denies any vomiting denies any fever denies any dyspnea to me. Associated symptoms: Deny abdominal pain, dyspnea, fever(s), nausea or vomiting Review of Systems Const: Denies: fever(s), chills, body aches or change in appetite Eyes: Denies: blurry vision or eye discomfort ENMT: Denies: throat pain or dental pain Card: Reports: chest pain Resp: Denies: dyspnea GI: Denies: abdominal pain, nausea, vomiting or diarrhea Musc: Denies: neck pain or back pain Skin/Breast: Denies: rash Neuro: Denies: headache(s) PFSH ED PFSH: Surgical History S/P foot surgery, left S/P laparoscopic appendectomy (08/04/20) Social History Smoking and tobacco status: never smoked Physical Exam Const: COMMON NORMALS: no acute distress, patient oriented x3 and healthy appearing HENMT: COMMON NORMALS: normocephalic and atraumatic HEAD & SCALP: normocephalic and atraumatic Neck/C-Spine: COMMON NORMALS: full ROM and supple Chest: COMMONS NORMALS: normal inspection of the chest and normal palpation of entire chest wall Resp: COMMON NORMALS: normal respiratory effort, No retractions, No use of accessory muscles and clear to auscultation bilaterally AUSCULTATION: clear to auscultation bilaterally Cardio: COMMON NORMALS: regular rate, regular rhythm and No murmurs present (Cardio) RATE: regular rate RHYTHM: regular rhythm GI: COMMON NORMALS: Normal to inspection, nondistended, normoactive bowel sounds present, Soft to palpation, non-tender and no masses PALPATION: Yes Soft to palpation Extremity: COMMON NORMALS: normal to inspection and full ROM Neuro: COMMON NORMALS: patient oriented x3, moves all extremities and no focal motor deficits Psych: COMMON NORMALS: mental status grossly normal, Normal thought process present and cooperative THOUGHT PROCESS: Normal thought process present Skin: COMMON NORMALS: no rashes or lesions noted and no wounds GENERAL SKIN EXAM: no rashes or lesions noted Course Vital Signs: Vital signs: Vital Signs Temperature 97.5 F L 09/25/22 03:17 Pulse Rate 71 09/25/22 03:26 Respiratory Rate 21 H 09/25/22 03:26 Blood Pressure 153/91 09/25/22 03:26 Pulse Oximetry 95 09/25/22 03:26 Oxygen Delivery Me thod Room Air 09/25/22 03:26 MDM - Chest Pain Medical Decision Making Patient presents for chest pains atypical in nature states he woke up it was a sharp pain in the center of his chest that since improved he states it was tender to palpation likely some chest wall pain his troponin EKG x-ray are all normal white count lipase are normal he is stable for discharge. Medical Records I reviewed the patient's medical records. Lab Data I reviewed the patient's lab results. 09/25/22 03:28 09/25/22 03:28 Laboratory Results WBC 6.9 10^3/uL (4.0-10.0) 09/25/22 03:28 RBC 5.15 10^6/uL (4.1-5.3) 09/25/22 03:28 Hgb 14.5 g/dL (11.7-16.6) 09/25/22 03:28 Hct 44.1 % (42.0-52.0) 09/25/22 03:28 MCV 85.6 fl (80-94) 09/25/22 03:28 MCH 28.2 pg (28.0-34.0) 09/25/22 03:28 MCHC 32.9 g/dL (30.0-36.0) 09/25/22 03:28 RDW 13.0 % (12.1-15.1) 09/25/22 03:28 Plt Count 273 10^3/cmm (130-400) 09/25/22 03:28 MPV 8.9 fL (7.4-10.4) 09/25/22 03:28 Neut % (Auto) 42.1 % 09/25/22 03:28 Lymph % (Auto) 47.5 % 09/25/22 03:28 [place] % (Auto) 7.7 % 09/25/22 03:28 Eos % (Auto) 1.7 % 09/25/22 03:28 Baso % (Auto) 0.9 % 09/25/22 03:28 Neut # (Auto) 2.91 10^3/uL (1.8-7.7) 09/25/22 03:28 Lymph # (Auto) 3.3 10^3/uL (0.8-4.8) 09/25/22 03:28 [place] # (Auto) 0.5 10^3/uL (0.2-0.9) 09/25/22 03:28 Eos # (Auto) 0.1 10^3/uL (0.0-0.8) 09/25/22 03: Baso # (Auto) 0.1 10^3/uL (0.0-0.1) 09/25/22 03:28 Nucleated RBC % (auto) 0 % 09/25/22 03:28 Nucleated RBCs # 0.0 /100WBC 09/25/22 03:28 Sodium 140 mmol/L (136-145) 09/25/22 03:28 Potassium 4.1 mmol/L (3.5-5.1) 09/25/22 03:28 Chloride 104 mmol/L (98-107) 09/25/22 03:28 Carbon Dioxide 25 mmol/L (22-29) 09/25/22 03:28 Anion Gap 15.1 (5-19) 09/25/22 03:28 BUN 13 mg/dL (6-20) 09/25/22 03:28 Creatinine 1.1 mg/dL (0.7-1.2) 09/25/22 03:28 GFR Calculation 83.0 mL/min (90-130) L 09/25/22 03:28 Glucose 84 mg/dL (65-115) 09/25/22 03:28 Calculated Osmolality 289 mOsm/kg (285-295) 09/25/22 03:28 Calcium 8.9 mg/dL (8.5-10.5) 09/25/22 03:28 Total Bilirubin 0.4 mg/dL (0.15-1.2) 09/25/22 03:28 AST 38 U/L (0-40) 09/25/22 03:28 ALT 42 U/L (0-41) H 09/25/22 03:28 Alkaline Phosphatase 81 U/L (40-130) 09/25/22 03:28 Troponin T Baseline 6 ng/L (0-15) 09/25/22 03:28 Total Protein 6.5 g/dL (6.6-8.7) L 09/25/22 03:28 Albumin 4.1 g/dL (3.5-5.2) 09/25/22 03:28 Globulin 2.4 g/dL (1.3-4.6) 09/25/22 03:28 Lipase 17 U/L (13-60) 09/25/22 03:28 Discharge Plan Discharge Patient Disposition: Home Clinical Impression: Chest pain Condition: Stable Prescriptions: New naproxen [Naprosyn] 500 mg tablet 500 mg PO BID PRN (Reason: pain) Qty: 20 0RF No Action Zofran 4 mg tablet 4 mg PO Q6H PRN (Reason: nausea and vomiting) Qty: 20 0RF Colace 100 mg capsule 100 mg PO BID Qty: 30 0RF hydrocodone-acetaminophen 5-325 mg tablet 1 tab PO Q6H PRN (Reason: pain) Qty: 20 0RF ondansetron 4 mg tablet,disintegrating 4 mg PO Q6H PRN (Reason: nausea and vomiting) Qty: 14 0RF Discharge Orders: Discharge ED (Routine); Ordered 09/25/22 Ordered By: Millicent Simms Referrals: Asael Mustafa MD [Primary Care Provider] - Discharge Diet: Advance as tolerated Discharge Activity: Resume usual activity Patient Instructions: Chest Pain (ED) Coding Level of Care Code ED Senior Resident Care Director for Vladimir Stovall
[2022-09-25] MEDS: ketorolac 30 mg/mL INJ IVP (04:07)
[2022-09-25 04:15] VITALS: BP 137/71; PULSE 67; RESP 22; O2SAT 92
== END 2022-09-25 04:30 | disposition home or self-care (01) ==
PROVIDERS: Emergency Provider Emergency Medicine; PCP Family Medicine
DX: R07.9 Chest pain, unspecified (principal)
CPT/HCPCS: 71045; 80053; 83690; 84484; 85025; 93005; 96374; 99285; J1885

== ENCOUNTER → 2024-08-28 09:26 | Outpatient (BNVA) | payer OTHER, SELFPAY | PROVIDERS: PCP Family Medicine; Visit Provider Physician Assistant | DX: G56.03 Carpal tunnel syndrome, bilateral upper limbs (principal) | CPT/HCPCS: 73130 ==

== ENCOUNTER 2024-09-11 07:11 | Day surgery (SDC) | payer OTHER, SELFPAY ==
[2024-09-11] VITALS (9 sets, daily range): BP systolic 105–151; BP diastolic 49–79; PULSE 44–53; RESP 18; TEMP 36.1–36.2; O2SAT 95–98; BMI 50.2
[2024-09-11] MEDS: acetaminophen 1,000 MG/100 ML PIGGYBACK 400 MG IV (07:44)
--- NOTE | 2024-09-11 07:56 | P.HPUD_ITS ---
Surgery/Procedure H&P Update DATE OF PROCEDURE: September 11, 2024 DATE H&P PERFORMED: 08/28/24 H&P UPDATE INFORMATION: I have reviewed H&P completed within last 30 days, I have examined patient prior to procedure and No changes to prior documentation CHANGES TO PREVIOUS DOCUMENTATION: Plan to proceed with right carpal tunnel release surgery today. Given his young age and having bilateral symptoms we talked about performing a tenosynovial b iopsy during the right carpal tunnel release surgery this would be to rule out amyloidosis. After discussion about the risk benefits complication of adding this onto the procedure he is agreeable I feel this would be standard given his young age just to rule out the any possible secondary cause of having the symptoms at an earlier age. He is agreeable to this and wished to proceed we will plan to proceed and the consent was updated today for a right carpal tunnel release with tenosynovial biopsy. Patient understands and agrees with current plan. All questions answered. PREOP DIAGNOSIS: Right carpal tunnel syndrome PRIMARY INDICATION FOR PROCEDURE: Right carpal tunnel syndrome PLANNED PROCEDURE: Operation Date: 09/11/24 08:50 Proposed Procedures p RIGHT Carpal Tunnel Release(Right) - Billy Merrill DO
--- NOTE | 2024-09-11 08:03 | ANES.PREANE2 ---
Pre-Anesthetic Assessment Height/Weight: Height 5 ft 11 in Weight 360 lb Temp Pulse Resp BP Pulse Ox O2 Del Method 97.2 F L 53 L 18 151/79 98 Room Air 09/11/24 07:30 09/11/24 07:30 09/11/24 07:30 09/11/24 07:43 09/11/24 07:30 09/11/24 07:30 Preop Diagnosis: Right carpal tunnel syndrome Operation Date: 09/11/24 08:50 Proposed Procedures p RIGHT Carpal Tunnel Release(Right) - Billy Merrill, DO Was Beta Yen taken within 24 hours: N/A Was Clonidine taken within 24 hours: N/A Last intake: Intake Last Liquid Date 09/10/24 Last Liquid Time 20:30 Last Solid Date 09/10/24 Last Solid Time 20:30 Social No alcohol and No tobacco Exam alert, oriented x 3, clear to auscultation bilaterally and regular rate & rhythm Airway Submandibular: within normal limits Cervical ROM: within normal limits Mallampati: Class II Dentition: full Comments: Comments: large lara Anesthetic Plan ASA status: 3 Anesthesia: MAC Other: No prior issues with anesthesia NPO since yesterday evening Denies any cardiac or pulmonary issues BMI of 50 METs greater than 4 Plan for MAC anesthesia with local via surgeon Medications/Allergies Home Medications ?Medication ?Instructions ?Recorded ?Confirmed ?Last Taken ?Type ibuprofen 200 mg tablet 200 mg PO Q6H PRN prn 09/10/24 09/10/24 Unknown History Allergies Allergy/AdvReac Type Severity Reaction Status Date / Time No Known Allergies Allergy Verified 09/11/24 07:29 Current Medications Generic Name Dose Route Start Last Admin Trade Name Raulq PRN Reason Stop Dose Admin Sodium Chloride 1,000 mls @ 30 mls/hr 09/11/24 07:30 09/11/24 07:44 Sodium Chloride 0.9% IV 09/12/24 07:29 30 mls/hr .Q24H SENA Administration PFSH Anesthesia Surgical History S/P laparoscopic appendectomy (08/04/20) S/P foot surgery, left Social History Smoking and tobacco/nicotine status: never used tobacco/nicotine
[2024-09-11] MEDS: ceFAZolin 3,000 MG in sodium chloride 0.9% (plus) 100 ML 200 MG IV (08:40)
[2024-09-11] MEDS: ROPivacaine 0.5% SDV 30 mL 25 MG INJECTION (09:03)
[2024-09-11] MEDS: lidocaine-epi 1% 20 mL INJ 5 ML INJECTION (09:03)
--- NOTE | 2024-09-11 09:13 | W.PM.BPON ---
Date of Procedure: 09/11/2024 Surgeon: Billy Merrill DO Assistant Director Of Security(s): None Procedure(s) performed: Right carpal tunnel release Right carpal tunnel tenosynovial biopsy Findings of the procedure(s): Patient underwent procedure as planned without issues or complications tenosynovial biopsy of the carpal tunnel was performed and then sent for specimen with plan for [place] red/amyloidosis staining Estimated blood loss: 2 mL Specimen(s) removed: Right carpal tunnel tenosynovial biopsy removed and sent for specimen with plan for [place] red/amyloidosis staining Post-operative diagnosis: Right carpal tunnel syndrome
--- NOTE | 2024-09-11 09:15 | P.OP_ITS ---
Operative Report Date of procedure: September 11, 2024 Specimens removed/disposition: Right carpal tunnel tenosynovial biopsy performed and sent for specimen with plan for Congo red/amyloidosis staining. Pathology: Right carpal tunnel tenosynovial biopsy performed and sent for specimen with plan for [place] red/amyloidosis staining. Surgeon: Billy Merrill DO Procedure: Preop Diagnosis: Right Carpal Tunnel Syndrome Post-op diagnosis: Same Procedure done: 1. Right carpal tunnel release 2. Right carpal tunnel tenosynovial biopsy Surgeon: Billy Merrill DO Anesthesia: MAC (Local) Estimated blood loss: 2 mL Tourniquet time 8 minutes IV fluids: See anesthesia record Complications: None Findings: See operative report narrative Condition: stable Disposition: same day Brief History: Patient is a pleasant 24 year-old male with right carpal tunnel syndrome. Patient has been worked up in the outpatient setting findings and physical examination consistent with this. Patient nerve conduction studies consistent with carpal tunnel syndrome. We did detailed out and talked about tenosynovial biopsy especially given his young age and bilateral carpal tunnel symptoms to rule out amyloidosis we talked about this in detail and patient is agreeable would like to pursue tenosynovial biopsy in addition to the right carpal tunnel procedure while already in surgery. We will go ahead we detailed out patient's risk benefits complication alternatives with surgical and nonsurgical treatment options. Through shared decision making, patient agrees to proceed with surgical intervention of the right carpal tunnel release with tenosynovial biopsy.. Patient understands and agrees with current plan. All questions answered. Rohit ibrahim elects to proceed with surgical intervention with carpal tunnel release. Procedure: Patient seen and evaluated in the preoperative holding area. Consent was reviewed and signed with patient. Correct extremity was marked. Patient was seen evaluated by the anesthesia department once cleared for surgery was brought back to the operative suite. Patient was kept on [facility] in supine position all bony prominences were well-padded patient properly secured to the bed. Right upper extremity was then placed onto an armboard. A nonsterile tourniquet was applied to the Right upper arm. Patient underwent anesthesia per the anesthesia department. Patient's Right upper extremity was then prepped and draped in standard orthopedic fashion. Final timeout performed. Patient received appropriate preoperative antibiotics. Under sterile aseptic technique patient received local anesthesia over the preplanned carpal tunnel incision site. Esmarch was used to exsanguinate the Right upper extremity and tourniquet was insufflated to 250 mmHg. A standard mini open Right carpal tunnel incision was made. Starting distally at Sloan's cardinal line in line with the fourth ray extending proximally distal to the wrist crease centered over the carpal tunnel. Sharp scalpel incision was made through skin and subcutaneous tissue. Self-retaining retractor was placed and the palmar fascia was identified. This was then split longitudinally and direct visualization of the transverse carpal ligament was then made. I then utilizing scalpel feathered through the transverse carpal l igament until I entered the floor of the transverse carpal tunnel ligament into the carpal tunnel. Next I switched to dissection scissors and completed my release of the transverse carpal ligament distally with care to protect the recurrent motor branch. I completely released into the palmar fat and until no entrapment was noted distally. Care was made to protect the superficial palmar arch during my distal dissection. Next I utilized a nasal speculum placed on top of the transverse carpal ligament and utilize this to retract the subcutaneous fat and tissue and under direct loupe magnification was able to identify the transverse carpal ligament. Next I then protected the contents of the carpal tunnel and subsequently utilizing dissection scissors under loupe magnification completely released the transverse carpal ligament proximally into the antebrachial fascia. Care was made to protect the palmar cutaneous branch by keeping my scissors curved ulnarly. Once completely released, I then placed my [place] and had appropriate decompression of the carpal tunnel proximally as well as distally. I then inspected the contents of the carpal tunnel which showed an hourglass shape of the median nerve showing its compression. No masses were noted. Tendons appeared healthy. Wound was then thoroughly irrigated. At this point I then performed a tenosynovial biopsy a a sharp scalpel incision and excised a 1 to 2 mm sliver of tissue off of the radial leaflet of the transverse carpal ligament. This was placed in a specimen cup I then identified one of the flexor tendons and removed a small amount of the tenosynovium around the flexor tendon and this was placed in specimen cup. This was then sent for specimen in addition plan to have pathology performed Congo red staining/a myloidosis staining to rule out amyloidosis. tourniquet deflated. Hemostasis satisfactory with bipolar electrocautery. I then closed the incision with interrupted nylon stitches. Xeroform 4 x 4's and a bulky soft dressing was applied. Patient was then awakened from anesthesia and taken to PACU in stable condition. Patient tolerated procedure without complications. Disposition: Patient taken to PACU in stable condition recovering well. Dressing clean dry and intact. Patient will receive appropriate discharge instructions as well as pain medication postoperatively. Patient to follow-up with me in the office in 2 weeks. They understand they may be weightbearing as tolerated to the right hand. Patient should keep incision clean dry and intact. Patient understands if any questions or concerns may contact the office.
--- NOTE | 2024-09-11 09:36 | PC.NURSE ---
Addendum entered by Annamaria Chase RN 09/11/24 09:38: no complaints of chest pain or discomfort. Original Note: Pulse 43-50 Called - will continue to monitor.
--- NOTE | 2024-09-11 10:14 | ANE.PACU2 ---
Inpatient post-anesthesia follow up: Airway intact: Yes Vital signs: Temperature 96.9 F Pulse Rate 48 Respiratory Rate 18 Blood Pressure 114/63 Pulse Oximetry 97 Oxygen Delivery Me thod Room Air Oxygen Flow Rate Fraction of Inspir ed Oxygen Hydration adequate: Yes Nausea and vomiting: No Pain level: 1 Mental status: Baseline
== END 2024-09-11 10:14 | disposition home or self-care (01) ==
PROVIDERS: PCP Family Medicine; Visit Provider Student in an Organized Health Care Education/Training Program
PROC: (CPT 64721; principal; 2024-09-11 08:40)
DX: G56.01 Carpal tunnel syndrome, right upper limb (principal); M65.841 Other synovitis and tenosynovitis, right hand
CPT/HCPCS: 64721; 26145; 88305; 88313; J0131; J0690; J1100; J1885; J2250; J2704; J2795; J3010; J7030; J9999

== ENCOUNTER 2024-12-31 08:36 | Day surgery (SDC) | payer OTHER, SELFPAY ==
[2024-12-31] VITALS (7 sets, daily range): BP systolic 103–153; BP diastolic 61–90; PULSE 61–78; RESP 18; TEMP 36.3–36.4; O2SAT 94–98; BMI 51.5; BMI 51.7
--- NOTE | 2024-12-31 09:21 | ANES.PREANE2 ---
Pre-Anesthetic Assessment Height/Weight: Height 1.8 m Weight 167.829 kg O2 Del Method Room Air 12/31/24 09:00 Operation Date: 12/31/24 10:35 Proposed Procedures p Carpal Tunnel Release(Left) - Billy Merrill DO Familial anesthetic complications: none Was Beta Yen taken within 24 hours: N/A Was Clonidine taken within 24 hours: N/A Last intake: Intake Last Liquid Date 12/30/24 Last Liquid Time 22:00 Last Solid Date 12/30/24 Last Solid Time 22:00 Social No alcohol and No tobacco Exam alert, oriented x 3, clear to auscultation bilaterally and regular rate & rhythm Airway Mallampati: Class IV Dentition: full Comments: Comments: full lara, large neck circumference Metabolic Morbid Obesity Anesthetic Plan ASA status: 3 Anesthesia: MAC Risk of > 500 ml blood loss (7ml/kg in children): No Medications/Allergies Home Medications ?Medication ?Instructions ?Recorded ?Confirmed ?Last Taken ?Type ibuprofen 200 mg tablet 200 mg PO Q6H PRN Pain 09/10/24 12/31/24 Unknown History Allergies Allergy/AdvReac Type Severity Reaction Status Date / Time No Known Allergies Allergy Verified 12/30/24 08:53 PFS Anesthesia Surgical History (Updated 09/29/24 @ 11:54 by BARNEY Jacinto) S/P laparoscopic appendectomy (08/04/20) S/P foot surgery, left Social History Smoking and tobacco/nicotine status: never used tobacco/nicotine
[2024-12-31] MEDS: acetaminophen 1,000 MG/100 ML PIGGYBACK 400 MG IV (09:22)
--- NOTE | 2024-12-31 10:43 | W.PM.OPSFHP ---
Same Day Surgery H&P Indication for Procedure/HPI DATE OF PROCEDURE: December 31, 2024 CHIEF COMPLAINT/INDICATIONFOR SURGICAL PROCEDURE: Left carpal tunnel syndrome PREOP DIAGNOSIS: Left carpal tunnel syndrome PLANNED PROCEDURE: Operation Date: 12/31/24 10:35 Proposed Procedures p Carpal Tunnel Release(Left) - Billy Merrill, DO Medications/Allergies* Home Medications ?Medication ?Instructions ?Recorded ?Confirmed ?Type ibuprofen 200 mg tablet 200 mg PO Q6H PRN Pain 09/10/24 12/31/24 History Allergies/Adverse Reactions Allergy/AdvReac Type Severity Reaction Status Date / Time No Known Allergies Allergy Verified 12/30/24 08:53 Current Medications: Generic Name Dose Route Start Last Admin Trade Name Freq PRN Reason Stop Dose Admin Sodium Chloride 1,000 mls @ 30 mls/hr 12/31/24 09:15 12/31/24 09:22 Sodium Chloride 0.9% IV 01/01/25 09:14 30 mls/hr .Q24H SENA Administration Pertinent History/Comorbid Conditions* Surgical History (Updated 09/29/24 @ 11:54 by BARNEY Jacinto) S/P laparoscopic appendectomy (08/04/20) S/P foot surgery, left Social History Smoking and tobacco/nicotine status: never used tobacco/nicotine Pertinent Exam Findings alert, oriented x 3, operative site marked and procedure specific exam findings Please refer to preoperative anesthesia note for heart and lung findings Please refer to detailed orthopedic examination on 09/29/2024: left Hand exam-positive Tinel's and positive Phalen's test. no thenar atrophy and no thenar muscle weakness. Full range of motion in fingers and wrist and fingers are warm and well-perfused with normal cap refill under 2 seconds. Radial pulse 2+, no intrinsic muscle weakness noted. No A1 ta tenderness no mechanical locking or catching of fingers. left Elbow exam-negative Tinel's test right hand?surgical incision site is healing well no signs of infection noted. No erythema, warmth or purulent drainage seen. Sutures are intact and no wound dehiscence seen. Full range of motion in fingers with no mechanical locking or catching. Fingers are warm and well-perfused. Recommendations Risks and benefits of procedure reviewed and Patient/family agree to proceed Surgery/Procedure today Other Plans: Plan to proceed to the OR today for left carpal tunnel release. He understands the ins and outs procedure the risk benefits complication alternatives of surgical nonsurgical treatment options. Understanding risk of surgery patient like to proceed with surgical invention. All questions answered at this time. He has had a right carpal tunnel release surgery back in September and has done well with this she did like to proceed with the left carpal tunnel release today all questions answered. Coding Level of Care Code Acute Code for Chg Fwd
[2024-12-31] MEDS: ceFAZolin 3,000 MG in sodium chloride 0.9% (plus) 100 ML 200 MG IV (10:51)
[2024-12-31] MEDS: lidocaine-epi 1% 20 mL INJ 5 ML INJECTION (11:12)
[2024-12-31] MEDS: ROPivacaine 0.5% SDV 30 mL 25 MG INJECTION (11:20)
--- NOTE | 2024-12-31 12:29 | P.BOP_ITS ---
Date of Procedure: 12/31/2024 Surgeon: Billy Merrill DO Learning And Development Specialist(s): None Procedure(s) performed: Left carpal tunnel release Findings of the procedure(s): Patient underwent procedure as planned without issues or complications taken recovery in stable condition Estimated blood loss: 5 mL Specimen(s) removed: None Post-operative diagnosis: left carpal tunnel syndrome
--- NOTE | 2024-12-31 12:30 | ANE.PACU2 ---
Inpatient post-anesthesia follow up: Airway intact: Yes Vital signs: Temperature 97.5 F Pulse Rate 64 Respiratory Rate 18 Blood Pressure 125/63 Pulse Oximetry 95 Oxygen Delivery Me thod Room Air Oxygen Flow Rate 8 Fraction of Inspir ed Oxygen Hydration adequate: Yes Nausea and vomiting: No Pain level: 1 Mental status: Baseline
--- NOTE | 2024-12-31 12:30 | P.OP_ITS ---
Operative Report Date of procedure: December 31, 2024 Surgeon: Billy Merrill DO Procedure: Preop Diagnosis: Left Carpal Tunnel Syndrome Post-op diagnosis: Same Procedure done: 1. Left carpal tunnel release Surgeon: Billy Merrill DO Anesthesia: MAC (Local) Estimated blood loss: 5 mL Tourniquet time 10 minutes IV fluids: See anesthesia record Complications: None Findings: See operative report narrative Condition: stable Disposition: same day Brief History: Patient is a pleasant 24 year-old male with left carpal tunnel syndrome. Patient has been worked up in the outpatient setting findings and physical examination consistent with this. Patient nerve conduction studies consistent with carpal tunnel syndrome. We detailed out patient's risk benefits complication alternatives with surgical and nonsurgical treatment options. Through shared decision making, patient agrees to proceed with surgical intervention of the left carpal tunnel release . Patient understands and agrees with current plan. All questions answered. Patient elects to proceed with surgical intervention with carpal tunnel release. Procedure: Patient seen and evaluated in the preoperative holding area. Consent was reviewed and signed with patient. Correct extremity was marked. Patient was seen evaluated by the anesthesia department once cleared for surgery was brought back to the operative suite. Patient was kept on [facility] in supine position all bony prominences were well-padded patient properly secured to the bed. Left upper extremity was then placed onto an armboard. A nonsterile tourniquet was applied to the left upper arm. Patient underwent anesthesia per the anesthesia department. Patient's left upper extremity was then prepped and draped in standard orthopedic fashion. Final timeout performed. Patient received appropriate preoperative antibiotics. Under sterile aseptic technique patient received local anesthesia over the preplanned carpal tunnel incision site. Esmarch was used to exsanguinate the left upper extremity and tourniquet was insufflated to 250 mmHg. A standard mini open left carpal tunnel incision was made. Starting distally at Sloan's cardinal line in line with the fourth ray extending proximally distal to the wrist crease centered over the carpal tunnel. Sharp scalpel incision was made through skin and subcutaneous tissue. Self-retaining retractor was placed and the palmar fascia was identified. This was then split longitudinally and direct visualization of the transverse carpal ligament was then made. I then utilizing scalpel feathered through the transverse carpal ligament until I entered the floor of the transverse carpal tunnel ligament into the carpal tunnel. Next I switched to dissection scissors and completed my release of the transverse carpal ligament distally with care to protect the recurrent motor branch. I completely released into the palmar fat and until no entrapment was noted distally. Care was made to protect the superficial palmar arch during my distal dissection. Next, nasal speculum placed proximally for retraction of soft tissue on top of the Transverse carpal ligament. Next the contents of the carpal tunnel where protected and and subsequently utilizing dissection scissors under loupe magnification completely released the transverse carpal ligament proximally into the antebrachial fascia. Care was made to protect the palmar cutaneous branch by keeping my scissors curved ulnarly. Once completely released, I then placed my [place] and had appropriate decompression of the carpal tunnel proximally as well as distally. I then inspected the contents of the carpal tunnel which showed an hourglass shape of the median nerve showing its compression. No masses were noted. Tendons appeared healthy. Wound was then thoroughly irrig ated. Tourniquet deflated. Hemostasis satisfactory with bipolar electrocautery. I then closed the incision with interrupted nylon stitches. Xeroform 4 x 4's and a bulky soft dressing was applied to the left upper extremity. Patient was then awakened from anesthesia and taken to PACU in stable condition. Patient tolerated procedure without complications. Disposition: Patient taken to PACU in stable condition recovering well. Dressing clean dry and intact. Patient will receive appropriate discharge instructions as well as pain medication postoperatively. Patient to follow-up with me in the office in 2 weeks. They understand they may be weightbearing as tolerated to the left hand. Patient should keep incision clean dry and intact. Patient understands if any questions or concerns may contact the office.
== END 2024-12-31 12:30 | disposition home or self-care (01) ==
PROVIDERS: PCP Family Medicine; Visit Provider Student in an Organized Health Care Education/Training Program
PROC: (CPT 64721; principal; 2024-12-31 10:35)
DX: G56.02 Carpal tunnel syndrome, left upper limb (principal); E66.01 Morbid (severe) obesity due to excess calories; Z68.43 Body mass index [BMI] 50.0-59.9, adult
CPT/HCPCS: 64721; J0131; J0690; J1885; J2250; J2704; J2795; J3010; J3490; J7030; J9999